=== PATIENT | female | born 1960 | race Caucasian/White ===

== ENCOUNTER → 2020-07-18 07:39 | Outpatient (CLI) | payer BC, SELFPAY ==
[2020-07-18 08:08] LABS: COVID19 -Nasal RAPID Negative (Negative)
== END ==
PROVIDERS: Visit Provider Physician Assistant
DX: R05 Cough (principal); R09.81 Nasal congestion
CPT/HCPCS: 87635

== ENCOUNTER → 2020-10-10 07:27 | Outpatient (CLI) | payer BC, SELFPAY ==
[2020-10-10 07:53] LABS: COVID19 -Nasal RAPID Negative (Negative)
== END ==
PROVIDERS: Visit Provider Physician Assistant
DX: R05 Cough (principal); Z20.822 Contact with and (suspected) exposure to COVID-19
CPT/HCPCS: 87635

== ENCOUNTER → 2020-10-25 09:49 | Outpatient (CLI) | payer BC, SELFPAY ==
[2020-10-25 10:12] LABS: COVID19 -Nasal RAPID Negative (Negative)
== END ==
PROVIDERS: Visit Provider Nurse Practitioner
DX: Z20.822 Contact with and (suspected) exposure to COVID-19 (principal); J02.9 Acute pharyngitis, unspecified; R05 Cough; R51.9 Headache, unspecified
CPT/HCPCS: 87635

== ENCOUNTER → 2021-04-08 16:44 | Outpatient (CLI) | payer BC, SELFPAY ==
[2021-04-08 17:15] LABS: COVID19 -Nasal RAPID Negative (Negative)
== END ==
PROVIDERS: Visit Provider Nurse Practitioner Critical Care Medicine
DX: Z20.822 Contact with and (suspected) exposure to COVID-19 (principal)
CPT/HCPCS: 87635